=== PATIENT | male | born 1995 | race Two or more races ===

== ENCOUNTER 2020-09-22 16:37 | Emergency (ER) | payer OTHER ==
[~2020-09-22] VITALS: Ht 177.8 cm; Wt 109.3 kg
[2020-09-22 16:51] VITALS: BP 144/88
--- NOTE | 2020-09-22 20:06 | NUR ---
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
[2020-09-22] MEDS ORDERED: OXYcodone/APAP 7.5/325MG TABLET PO ONE (21:00)
== END 2020-09-22 21:42 | disposition home or self-care (01) ==
LOC: ED 20:28
DX: S62.511A Displaced fracture of proximal phalanx of right thumb, initial encounter for closed fracture (principal); X58.XXXA Exposure to other specified factors, initial encounter; Y93.89 Activity, other specified; Y92.009 Unspecified place in unspecified non-institutional (private) residence as the place of occurrence of the external cause; Y99.8 Other external cause status
CPT/HCPCS: 29125; 99283